=== PATIENT | male | born 1985 | race Caucasian/White ===

== ENCOUNTER 2017-07-19 16:19 | Emergency (ER) | payer BC ==
[~2017-07-19] VITALS: Ht 167.6 cm; Wt 66.0 kg
[~2017-07-19 16:19] MED LIST: NO HOME MEDS
[2017-07-19] MEDS ORDERED: PRED10TA23 PO (17:22)
[2017-07-19] MEDS ORDERED: FAMO-128 PO (17:22)
[2017-07-19 17:39] VITALS: BP 141/77
== END 2017-07-19 17:42 | disposition home or self-care (01) ==
LOC: ER 16:19
DX: R21 Rash and other nonspecific skin eruption (principal); T36.3X5A Adverse effect of macrolides, initial encounter; Y92.9 Unspecified place or not applicable; Z88.0 Allergy status to penicillin; Z88.1 Allergy status to other antibiotic agents; Z79.899 Other long term (current) drug therapy
CPT/HCPCS: 99283

== ENCOUNTER 2017-09-08 22:45 | Emergency (ER) | payer BC ==
[~2017-09-08] VITALS: Ht 170.2 cm; Wt 69.2 kg
[~2017-09-08 22:45] MED LIST changes: +FAMO-128 PO
[2017-09-09] MEDS ORDERED: HYDROcodone/acetaminophen 10/325mg tab PO ONE (00:30)
[2017-09-09] MEDS ORDERED: MUPI22OI30 TOP (00:54)
[2017-09-09] MEDS ORDERED: HYDR-565 PO (00:54)
[2017-09-09 01:02] VITALS: BP 158/78
[2017-09-10 05:24] LABS: RPR Non Reactive (Non Reactive)
== END 2017-09-09 01:04 | disposition home or self-care (01) ==
LOC: ER 22:45
DX: L27.0 Generalized skin eruption due to drugs and medicaments taken internally (principal); R21 Rash and other nonspecific skin eruption; Z88.0 Allergy status to penicillin; Z88.1 Allergy status to other antibiotic agents; Z88.8 Allergy status to other drugs, medicaments and biological substances; Z79.899 Other long term (current) drug therapy
CPT/HCPCS: 36415; 86592; 99283

== ENCOUNTER 2017-09-14 12:11 | Emergency (ER) | payer BC ==
[~2017-09-14] VITALS: Ht 170.2 cm; Wt 77.3 kg
[~2017-09-14 12:11] MED LIST changes: +HYDR-565 PO; +MUPI22OI30 TOP
[2017-09-14 12:17] VITALS: BP 124/86
== END 2017-09-14 14:42 | disposition left against medical advice (07) ==
LOC: ER 12:12
DX: R21 Rash and other nonspecific skin eruption (principal); Z53.21 Procedure and treatment not carried out due to patient leaving prior to being seen by health care provider

== ENCOUNTER 2018-06-30 18:01 | Emergency (ER) | payer MEDICAID ==
[~2018-06-30] VITALS: Ht 170.2 cm; Wt 86.4 kg
[~2018-06-30 18:01] MED LIST changes: -HYDR-565 PO; -MUPI22OI30 TOP; -NO HOME MEDS
[2018-06-30 18:19] VITALS: BP 145/90
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
[2018-06-30 19:24] LABS: BASOPHILS % (AUTO) 0.3 % (0-1); EOSINOPHILS # (AUTO) 0.2 X10'3 (0-0.9); EOSINOPHILS % (AUTO) 2.1 % (0-6); HEMATOCRIT 48.2 % (42.0-52.0); HEMOGLOBIN 16.3 g/dl (14.0-17.9); LYMPHOCYTES # (AUTO) 2.1 X10'3 (1.1-4.8); LYMPHOCYTES % (AUTO) 23.9 % (21-51); MEAN CORPUSCULAR HEMOGLOBIN 28.1 PG (27.0-31.0); MEAN CORPUSCULAR HGB CONC 33.7 g/dL (33.0-36.5); MEAN CORPUSCULAR VOLUME 83.3 FL (78-98); MEAN PLATELET VOLUME 7.1 FL (7.4-10.4); MONOCYTES # (AUTO) 0.5 X10'3 (0-0.9); NEUTROPHILS # (AUTO) 6.1 X10'3 (1.8-7.7); NEUTROPHILS % (AUTO) 67.7 % (42-75); PLATELET COUNT 349 X10'3 (140-440); RED BLOOD COUNT 5.79 X10'6 (4.70-6.10); RED CELL DISTRIBUTION WIDTH 13.1 % (11.5-14.5)
[2018-06-30 19:37] LABS: ALANINE AMINOTRANSFERASE 57 U/L (12-78); ALBUMIN 4.1 G/DL (3.4-5.0); ALKALINE PHOSPHATASE 123 IU/L (46-116); ANION GAP 9 (8-16); ASPARTATE AMINO TRANSFERASE 22 U/L (10-37); BILIRUBIN,TOTAL 0.6 MG/DL (0.1-1.0); BLOOD UREA NITROGEN 14 MG/DL (7-18); BUN/CREATININE RATIO 12.5 (5.4-32.0); CALCIUM 9.8 MG/DL (8.5-10.1); CHLORIDE 103 MMOL/L (99-107); CREATININE 1.12 MG/DL (0.60-1.10); ETHANOL < 0.010 GM/DL (0.0-0.010); GLUCOSE 89 MG/DL (70-104); POTASSIUM 3.9 MMOL/L (3.5-5.1); SODIUM 141 MMOL/L (135-145); TOTAL CARBON DIOXIDE 28.7 MMOL/L (24-32); TOTAL PROTEIN 8.2 G/DL (6.4-8.2); eGFR 76 ML/MIN
--- NOTE | 2018-06-30 20:09 | NUR ---
EVITA Hart is at the bedside assessing the patient.
[2018-06-30] MEDS ORDERED: CARB100T3 PO (20:21)
[2018-06-30] MEDS ORDERED: DULO60CA64 PO (20:21)
== END 2018-06-30 20:39 | disposition home or self-care (01) ==
LOC: ER 18:02
DX: F31.9 Bipolar disorder, unspecified (principal); Z88.0 Allergy status to penicillin; Z88.1 Allergy status to other antibiotic agents; Z88.8 Allergy status to other drugs, medicaments and biological substances; Z79.899 Other long term (current) drug therapy
CPT/HCPCS: 36415; 80053; 80320; 85025; 99283; 99284

== ENCOUNTER 2019-07-27 23:59 | Emergency (ER) | payer MEDICAID ==
[~2019-07-27] VITALS: Ht 167.6 cm; Wt 68.2 kg
[~2019-07-27 23:59] MED LIST changes: +CARB100T3 PO; +DULO60CA65 PO
[2019-07-28 00:44] VITALS: BP 151/86
== END 2019-07-28 00:47 ==
LOC: ER 23:59
DX: S10.81XA Abrasion of other specified part of neck, initial encounter (principal); F31.9 Bipolar disorder, unspecified; Z88.0 Allergy status to penicillin; Z88.3 Allergy status to other anti-infective agents; Z88.1 Allergy status to other antibiotic agents; Z88.6 Allergy status to analgesic agent; Z79.899 Other long term (current) drug therapy; X58.XXXA Exposure to other specified factors, initial encounter; Y93.89 Activity, other specified; Y92.59 Other trade areas as the place of occurrence of the external cause; Y99.9 Unspecified external cause status
CPT/HCPCS: 70360; 99283

== ENCOUNTER 2020-01-02 08:05 | Emergency (ER) | payer MEDICAID ==
[~2020-01-02] VITALS: Ht 167.6 cm; Wt 75.5 kg
[2020-01-02 08:09] VITALS: BP 129/77
[2020-01-02] MEDS ORDERED: ibuprofen tablet 400 MG TABLET PO ONE (09:10)
[2020-01-02] MEDS ORDERED: clindamycin 150mg capsule PO ONE (09:10)
[2020-01-02] MEDS ORDERED: CLIN300C53 PO (09:11)
[2020-01-02] MEDS ORDERED: IBUP-1985 PO (09:11)
[2020-01-02] MEDS ORDERED: BACI1PAC7 TP (09:11)
== END 2020-01-02 09:29 | disposition home or self-care (01) ==
LOC: ER 08:06
DX: L03.211 Cellulitis of face (principal); F31.9 Bipolar disorder, unspecified; Z88.0 Allergy status to penicillin; Z88.1 Allergy status to other antibiotic agents; Z88.8 Allergy status to other drugs, medicaments and biological substances; Z79.2 Long term (current) use of antibiotics; Z79.899 Other long term (current) drug therapy
CPT/HCPCS: 99283

== ENCOUNTER 2022-06-06 11:44 | Emergency (ER) | payer MEDICAID ==
[~2022-06-06] VITALS: Ht 167.6 cm; Wt 70.5 kg
[~2022-06-06 11:44] MED LIST changes: +IBUP-1985 PO
[2022-06-06 11:49] VITALS: BP 147/92
--- NOTE | 2022-06-06 11:54 | NUR ---
PT ONLY WANTS TYLENOL OR IBPROFEN.
[2022-06-06] MEDS ORDERED: acetaminophen 325mg tablet PO ONE ×2 (12:05→12:10)
== END 2022-06-06 13:44 | disposition home or self-care (01) ==
LOC: ER 11:45
DX: S86.002A Unspecified injury of left Achilles tendon, initial encounter (principal); M79.89 Other specified soft tissue disorders; F31.9 Bipolar disorder, unspecified; Z88.0 Allergy status to penicillin; Z88.1 Allergy status to other antibiotic agents; Z79.899 Other long term (current) drug therapy; Z88.5 Allergy status to narcotic agent; X58.XXXA Exposure to other specified factors, initial encounter; Y93.89 Activity, other specified; Y92.89 Other specified places as the place of occurrence of the external cause; Y99.8 Other external cause status
CPT/HCPCS: 73700; 99284; L4360

== ENCOUNTER 2022-07-26 06:25 | Day surgery (SDC) | payer MEDICAID ==
[2022-07-25 15:38] LABS: BASOPHILS % (AUTO) 0.2 % (0-1); EOSINOPHILS # (AUTO) 0.1 X10'3 (0-0.9); HEMOGLOBIN 14.6 g/dl (14.0-17.9); LYMPHOCYTES # (AUTO) 1.2 X10'3 (1.1-4.8); LYMPHOCYTES % (AUTO) 7.5 % (21-51)
[2022-07-25 15:38] LABS: CLARITY,URINE CLEAR (Clear); COLOR,URINE YELLOW (Yellow); GLUCOSE, URINE NEGATIVE (Neg); KETONES,URINE NEGATIVE (Neg); LEUKOCYTE ESTERASE ,URINE NEGATIVE (Neg); NITRITES, URINE NEGATIVE (Neg); OCCULT BLOOD,URINE NEGATIVE (Neg); PH,URINE 6.5 (4.8-8.0); PROTEIN,URINE NEGATIVE (Neg); UROBILINOGEN,URINE 0.2 E.U/dL (0.2-1.0)
[2022-07-25 15:43] LABS: UA COLLECTION TYPE CLN CATCH MIDSTREAM
[2022-07-25 15:51] LABS: EOSINOPHILS % (AUTO) 0.4 % (0-6); HEMATOCRIT 43.9 % (42.0-52.0); MEAN CORPUSCULAR HEMOGLOBIN 28.3 PG (27.0-31.0); MEAN CORPUSCULAR HGB CONC 33.3 g/dL (33.0-36.5); MEAN CORPUSCULAR VOLUME 84.8 FL (78-98); MONOCYTES # (AUTO) 0.9 X10'3 (0-0.9); MONOCYTES % (AUTO) 5.5 % (2-12); NEUTROPHILS # (AUTO) 13.7 X10'3 (1.8-7.7); NEUTROPHILS % (AUTO) 86.4 % (42-75); PLATELET COUNT 329 X10'3 (140-440); RED BLOOD COUNT 5.18 X10'6 (4.70-6.10); RED CELL DISTRIBUTION WIDTH 13.3 % (11.5-14.5); WHITE BLOOD COUNT 15.8 X10'3 (4.5-11.0)
[2022-07-25 16:01] LABS: ALANINE AMINOTRANSFERASE 36 U/L (12-78); ALBUMIN/GLOBULIN RATIO 1.1 (1.1-1.5); ALKALINE PHOSPHATASE 74 IU/L (46-116); ANION GAP 8 (8-16); ASPARTATE AMINO TRANSFERASE 16 U/L (10-37); BILIRUBIN,TOTAL 1.2 MG/DL (0.1-1.0); BLOOD UREA NITROGEN 13 MG/DL (7-18); BUN/CREATININE RATIO 12.4 (10.0-20.0); CALCIUM 9.1 MG/DL (8.5-10.1); CHLORIDE 105 MMOL/L (99-107); CREATININE 1.05 MG/DL (0.60-1.10); GLUCOSE 97 MG/DL (70-104); POTASSIUM 3.8 MMOL/L (3.5-5.1); SODIUM 141 MMOL/L (135-145); TOTAL PROTEIN 7.5 G/DL (6.4-8.2); eGFR 80 ML/MIN
[2022-07-26] VITALS (15 sets, daily range): BP systolic 107–142; BP diastolic 62–86
[~2022-07-26 06:25] MED LIST changes: -CARB100T3 PO; -DULO60CA65 PO; -FAMO-128 PO; -IBUP-1985 PO; +NO HOME MEDS; +famotidine 20mg tablet PO ONE; +ringers solution, lacted 1,000 ML IV SCH; +vancomycin 1,500 MG in NS 300ml IV soln IV ONE
[2022-07-26] MEDS ORDERED: BUPIVAcaine/PF 2.5 mg/ml (0.25%) 30ml vial ONE (10:36)
[2022-07-26] MEDS ORDERED: bacitracin 15gm ointment TP ONE (10:37)
[2022-07-26] MEDS ORDERED: midazolam 1 mg/ML 2ml injection ONE (10:45)
[2022-07-26] MEDS ORDERED: fentaNYL/PF 50MCG/1 ML 2ML syringe ONE (10:45)
[2022-07-26] MEDS ORDERED: propofol inj 20 ML IV ONE (10:45)
[2022-07-26] MEDS ORDERED: rocuronium 10mg/ml inj IV ONE (10:45)
[2022-07-26] MEDS ORDERED: ROPIVAcaine 0.5% (5mg/ml) 30ml vial ONE (10:48)
[2022-07-26] MEDS ORDERED: ondansetron/PF 4mg/2ml inj ONE (10:52)
[2022-07-26] MEDS ORDERED: sevoflurane 250ml liquid IH ONE (10:52)
[2022-07-26] MEDS ORDERED: proCHLORperazine 10 MG/2 ml inj IV PRN (10:55)
[2022-07-26] MEDS ORDERED: ondansetron/PF 4mg/2ml inj IV PRN (10:55)
[2022-07-26] MEDS ORDERED: morphine 4 MG/ML inj SYRINge IV PRN (10:55)
[2022-07-26] MEDS ORDERED: morphine 2 MG/ML inj. syringe IV PRN (10:55)
[2022-07-26] MEDS ORDERED: meperidine/PF 25mg/ml syringe IV PRN ×2 (10:55)
[2022-07-26] MEDS ORDERED: ringers solution, lacted 1,000 ML IV SCH (10:55)
[2022-07-26] MEDS ORDERED: sugammadex 200mg/2ml injection IV ONE (12:17)
--- NOTE | 2022-07-26 12:35 | NUR ---
Received from OR via [facility], accompanied by Anesthesiologist LAZARO and report given by Anesthesiolgist. PT DROWSY, OXYGENATING WELL ON 10 LPM O2 VIA MASK, NO RESP DISTRESS NOTED. NO NAUSEA, PT C/O SEVERE PAIN IN LLE, 12/31. MEDICATED PRN, SEE EMAR. SPLINT/CAST TO LLE WITH UNRULY BANDAGE, CDI. LEFT TOES PWD. VSS.
[2022-07-26] MEDS: meperidine/PF 25mg/ml syringe IV PRN ×2 (12:37→12:45)
[2022-07-26] MEDS ORDERED: acetaminophen 1,000mg/100ml IV 100 ML IV ONE (12:40)
[2022-07-26] MEDS ORDERED: ketorolac trometh. 30mg/ml inj. IV ONE (12:40)
[2022-07-26] MEDS ORDERED: HYDROcodone/acetaminophen 10/325mg tab PO ONE (13:40)
--- NOTE | 2022-07-26 15:00 | NUR ---
MULTIPLE MEDICATIONS GIVEN IN PACU FOR POST OP PAIN, PT STATES IT IS AT A 2/10 AT THE TIME OF DC. VSS. TOLERATING PO FLUIDS WELL. DC INSTRUCTIONS EXPLAINED TO PT, HE VERBALIZED UNDERSTANDING. PT WAS PROVIDED WITH POWDER PACK AND ELEVATION WEDGE PILLOW. DCD IN STABLE CONDITION, TAKEN TO CAR VIA WC.
== END 2022-07-26 15:00 | disposition home or self-care (01) ==
LOC: PAS 06:25
PROVIDERS: ATTEND Podiatrist Foot & Ankle Surgery
DX: S86.012A Strain of left Achilles tendon, initial encounter (principal); Z88.1 Allergy status to other antibiotic agents; Z88.0 Allergy status to penicillin; Z88.8 Allergy status to other drugs, medicaments and biological substances; Z87.891 Personal history of nicotine dependence; Z72.89 Other problems related to lifestyle; Z79.82 Long term (current) use of aspirin; Z79.899 Other long term (current) drug therapy; G89.18 Other acute postprocedural pain; X58.XXXA Exposure to other specified factors, initial encounter; Y93.89 Activity, other specified; Y92.89 Other specified places as the place of occurrence of the external cause; Y99.8 Other external cause status
CPT/HCPCS: 27650; 36415; 64445; 80053; 81003; 82948; 85025; J0131; J1885; J2175; J2250; J2405; J2704; J2795; J3010; J3370; J3490; J7120; Z7512; A4215; A4618; A6222; A6253; A6449; A7000; C1713

== ENCOUNTER 2024-01-26 12:14 | Emergency (ER) | payer MEDICAID ==
[~2024-01-26] VITALS: Ht 172.7 cm; Wt 69.3 kg
[~2024-01-26 12:14] MED LIST changes: -famotidine 20mg tablet PO ONE; -ringers solution, lacted 1,000 ML IV SCH; -vancomycin 1,500 MG in NS 300ml IV soln IV ONE
[2024-01-26] MEDS: LORazepam 2 mg/ml vial IV ONE (12:48)
[2024-01-26 12:54] LABS: BASOPHILS % (AUTO) 0.3 % (0-1); EOSINOPHILS # (AUTO) 0.2 X10'3 (0-0.9); EOSINOPHILS % (AUTO) 1.8 % (0-6); HEMATOCRIT 45.8 % (42.0-52.0); HEMOGLOBIN 15.7 g/dl (14.0-17.9); LYMPHOCYTES # (AUTO) 3.4 X10'3 (1.1-4.8); MEAN CORPUSCULAR HEMOGLOBIN 29.2 PG (27.0-31.0); MEAN CORPUSCULAR HGB CONC 34.3 g/dL (33.0-36.5); MEAN CORPUSCULAR VOLUME 85.1 FL (78-98); MEAN PLATELET VOLUME 6.8 FL (7.4-10.4); MONOCYTES # (AUTO) 0.6 X10'3 (0-0.9); MONOCYTES % (AUTO) 5.1 % (2-12); NEUTROPHILS # (AUTO) 6.7 X10'3 (1.8-7.7); NEUTROPHILS % (AUTO) 61.8 % (42-75); PLATELET COUNT 377 X10'3 (140-440); RED BLOOD COUNT 5.39 X10'6 (4.70-6.10); RED CELL DISTRIBUTION WIDTH 13.3 % (11.5-14.5); WHITE BLOOD COUNT 10.9 X10'3 (4.5-11.0)
[2024-01-26 13:07] LABS: ALANINE AMINOTRANSFERASE 28 U/L (12-78); ALBUMIN/GLOBULIN RATIO 1.1 (1.1-1.5); ALKALINE PHOSPHATASE 76 IU/L (46-116); ANION GAP 9 (8-16); ASPARTATE AMINO TRANSFERASE 17 U/L (10-37); BILIRUBIN,TOTAL 1.6 MG/DL (0.1-1.0); BLOOD UREA NITROGEN 12 MG/DL (7-18); BUN/CREATININE RATIO 9.3 (10.0-20.0); CALCIUM 9.2 MG/DL (8.5-10.1); CHLORIDE 103 MMOL/L (99-107); CREATININE 1.29 MG/DL (0.60-1.10); GLUCOSE 111 MG/DL (70-104); POTASSIUM 3.2 MMOL/L (3.5-5.1); SODIUM 140 MMOL/L (135-145); TOTAL CARBON DIOXIDE 28.4 MMOL/L (24-32); TOTAL PROTEIN 7.6 G/DL (6.4-8.2); eCRCL 76 ML/MIN; eGFR 63 ML/MIN
[2024-01-26] MEDS ORDERED: magnesium Cl slow-release 64mg tablet PO PRN (14:45)
[2024-01-26] MEDS ORDERED: potassium Cl 40MEQ/1/2NS 520ml 520 ML IV PRN (14:45)
[2024-01-26] MEDS ORDERED: potassium Cl 20 mEq SR tablet PO PRN (14:45)
[2024-01-26] MEDS ORDERED: magnesium sulf-water 4G/100mL 100 ML IV PRN (14:45)
[2024-01-26] MEDS ORDERED: magnesium sulf-water 2g/50mL 50 ML IV PRN (14:45)
[2024-01-26] MEDS: normal saline 1000ml 1,000 ML IV ONE (15:01)
[2024-01-26] MEDS: potassium Cl 20 mEq SR tablet PO PRN (15:10)
[2024-01-26 15:14] VITALS: BP 116/72; PULSE 76; RESP 15; TEMP 98.5; O2SAT 96
[2024-01-26 15:49] LABS: MAGNESIUM 2.1 MG/DL (1.5-2.4)
[2024-01-26] MEDS ORDERED: K and/or MAG REPLACEMENT MC SCH (20:00)
== END 2024-01-26 15:16 | disposition home or self-care (01) ==
LOC: ER 12:15
DX: R00.2 Palpitations (principal); F41.9 Anxiety disorder, unspecified; F32.A Depression, unspecified; R79.89 Other specified abnormal findings of blood chemistry; R00.0 Tachycardia, unspecified; Z88.0 Allergy status to penicillin; Z88.1 Allergy status to other antibiotic agents; Z88.8 Allergy status to other drugs, medicaments and biological substances
CPT/HCPCS: 36415; 71045; 80053; 83735; 84484; 85025; 93005; 96374; 99285; J2060

== ENCOUNTER 2024-01-28 17:14 | Emergency (ER) | payer MEDICAID ==
[~2024-01-28] VITALS: Ht 167.6 cm; Wt 69.0 kg
[2024-01-28 17:32] VITALS: TEMP 97.6
[2024-01-28 18:09] LABS: BASOPHILS % (AUTO) 0.3 % (0-1); EOSINOPHILS # (AUTO) 0.2 X10'3 (0-0.9); EOSINOPHILS % (AUTO) 1.7 % (0-6); LYMPHOCYTES # (AUTO) 2.6 X10'3 (1.1-4.8); LYMPHOCYTES % (AUTO) 17.6 % (21-51); MEAN CORPUSCULAR HGB CONC 34.1 g/dL (33.0-36.5); MEAN CORPUSCULAR VOLUME 85.1 FL (78-98); MEAN PLATELET VOLUME 6.7 FL (7.4-10.4); MONOCYTES # (AUTO) 0.8 X10'3 (0-0.9); MONOCYTES % (AUTO) 5.5 % (2-12); NEUTROPHILS % (AUTO) 74.9 % (42-75); PLATELET COUNT 365 X10'3 (140-440); RED BLOOD COUNT 5.52 X10'6 (4.70-6.10); RED CELL DISTRIBUTION WIDTH 13.6 % (11.5-14.5); WHITE BLOOD COUNT 14.7 X10'3 (4.5-11.0)
[2024-01-28 18:27] LABS: ALANINE AMINOTRANSFERASE 31 U/L (12-78); ALBUMIN 4.1 G/DL (3.4-5.0); ALBUMIN/GLOBULIN RATIO 1.1 (1.1-1.5); ALKALINE PHOSPHATASE 78 IU/L (46-116); ANION GAP 6 (8-16); ASPARTATE AMINO TRANSFERASE 36 U/L (10-37); BILIRUBIN,TOTAL 2.3 MG/DL (0.1-1.0); BLOOD UREA NITROGEN 17 MG/DL (7-18); BUN/CREATININE RATIO 14.4 (10.0-20.0); CALCIUM 9.2 MG/DL (8.5-10.1); CHLORIDE 100 MMOL/L (99-107); CREATININE 1.18 MG/DL (0.60-1.10); GLUCOSE 91 MG/DL (70-104); SODIUM 133 MMOL/L (135-145); TOTAL CARBON DIOXIDE 26.8 MMOL/L (24-32); TOTAL PROTEIN 7.9 G/DL (6.4-8.2); eCRCL 77 ML/MIN; eGFR 69 ML/MIN
[2024-01-28 18:33] LABS: PRO BRAIN NATRIURETIC PEPTIDE 33 PG/ML (0-125)
[2024-01-28] MEDS: meclizine 12.5mg tablet PO ONE (22:08)
[2024-01-28] MEDS: normal saline 1000ML IV soln IVB ONE (22:08)
[2024-01-28] MEDS ORDERED: MECL-231 PO (23:05)
[2024-01-29 00:30] VITALS: BP 135/83; PULSE 69; RESP 20; O2SAT 97
== END 2024-01-29 00:50 | disposition home or self-care (01) ==
LOC: ER 17:14
DX: E86.0 Dehydration (principal); H81.10 Benign paroxysmal vertigo, unspecified ear; E87.1 Hypo-osmolality and hyponatremia; I49.8 Other specified cardiac arrhythmias; F32.A Depression, unspecified; Z88.0 Allergy status to penicillin; Z88.1 Allergy status to other antibiotic agents; Z88.8 Allergy status to other drugs, medicaments and biological substances
CPT/HCPCS: 36415; 71045; 80053; 83880; 84484; 85025; 93005; 96360; 99285; J7030; J8597